=== PATIENT | female | born 1965 | race Caucasian/White ===

== ENCOUNTER 2021-10-16 14:28 | Emergency (ER) | payer SELFPAY ==
[~2021-10-16] VITALS: Ht 180.3 cm; Wt 83.9 kg
[2021-10-16 14:55] VITALS: BP 152/76
[2021-10-16] MEDS ORDERED: IBUPROFEN 800 MG TAB PO ONE (16:00)
== END 2021-10-16 16:32 | disposition home or self-care (01) ==
LOC: ER 14:28
DX: S42.255A Nondisplaced fracture of greater tuberosity of left humerus, initial encounter for closed fracture (principal); W19.XXXA Unspecified fall, initial encounter; Y93.89 Activity, other specified; Y92.89 Other specified places as the place of occurrence of the external cause; Y99.8 Other external cause status
CPT/HCPCS: 73030